=== PATIENT | male | born 1990 | race Two or more races ===

== ENCOUNTER 2018-03-16 03:31 | Emergency (ER) | payer SELFPAY ==
[2018-03-16] VITALS (7 sets, daily range): BP systolic 93–132; BP diastolic 53–93
[~2018-03-16] VITALS: Ht 180.3 cm; Wt 113.4 kg
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
[2018-03-16] MEDS ORDERED: Promethazine 50mg/ml Inj IM ONE (04:15)
[2018-03-16 05:08] LABS: BASOPHILS % (AUTO) 0.7 % (0.0-2.0); EOSINOPHILS % (AUTO) 1.5 % (0.0-3.0); HEMATOCRIT 45.8 % (42.0-52.0); HEMOGLOBIN 15.9 G/DL (14.2-18.0); MEAN CORPUSCULAR VOLUME 85 FL (80-99); MONOCYTES % (AUTO) 6.3 % (1.0-10.0); NEUTROPHILS % (AUTO) 56.5 % (45.0-75.0); PLATELET COUNT 302 K/UL (150-450); RED BLOOD COUNT 5.37 M/UL (4.70-6.10); RED CELL DISTRIBUTION WIDTH 11.1 % (11.6-14.8)
[2018-03-16 05:21] LABS: ANION GAP 11 mmol/L (5-15); BLOOD UREA NITROGEN 16 mg/dL (7-18); CALCIUM 8.2 MG/DL (8.5-10.1); CARBON DIOXIDE 24 MMOL/L (21-32); CHLORIDE 105 MMOL/L (98-107); CREATININE 1.1 MG/DL (0.55-1.30); POTASSIUM 3.9 MMOL/L (3.5-5.1); SODIUM 140 MMOL/L (136-145)
[2018-03-16] MEDS ORDERED: Haloperidol 5mg/ml Inj IM ONE (05:30)
--- NOTE | 2018-03-16 10:29 | Diagnostic Imaging Report ---
Indications: Head trauma, fell on forehead, intoxicated Technique: Spiral acquisitions obtained through the brain. Angled axial and coronal 5 x 5 mm slices were reconstructed. Total dose length product 1302.19 mGycm. CTDI vol(s) 70.38 mGy. Dose reduction achieved using automated exposure control Comparison: None. Findings: There are skin pham in the left frontal scalp. There is a small underlying scalp hematoma. No acute intracranial hemorrhage or edema, mass effect, nor midline shift. Normal size ventricles and extra axial CSF spaces. The calvarium is intact. The mastoids are clear. Visualized orbits and sinuses are unremarkable. Impression: Evidence of right frontal scalp soft tissue injury. Negative for acute infiltrate bleed or mass effect This agrees with the preliminary interpretation provided overnight by [facility]. The CT scanner at [facility] is accredited by the [employer] and the scans are performed using protocols designed to limit radiation exposure to as low as reasonably achievable to attain images of sufficient resolution adequate for diagnostic evaluation.
[2018-03-16] MEDS ORDERED: BACITRACIN ZIN1 EACH TOPIC (12:55)
[2018-03-16] MEDS ORDERED: Bacitracin Oint UD TOPIC ONE ×2 (12:59→13:00)
== END 2018-03-16 13:28 | disposition home or self-care (01) ==
LOC: EDBD 03:31 → EMR 04:08
DX: S01.01XA Laceration without foreign body of scalp, initial encounter (principal); W22.01XA Walked into wall, initial encounter; Y93.89 Activity, other specified; Y92.89 Other specified places as the place of occurrence of the external cause; F10.10 Alcohol abuse, uncomplicated
CPT/HCPCS: 36415; 70450; 80048; 80307; 85025; 96361; 96372; 96374; 99284; G0480; J1630; J2405; J2550; 80329